=== PATIENT | male | born 1955 | race Caucasian/White ===

== ENCOUNTER → 2019-12-11 | Outpatient (CLI) | payer BC ==
--- NOTE | 2019-12-11 16:06 | KCIC ---
EXAM: MRI RIGHT KNEE DATE: 12/11/2019 1:15 PM CLINICAL INDICATION: Right knee pain-laterally, locking sensation. COMPARISON: None. TECHNIQUE: Multiplanar, multisequence MRI of the right knee was performed without contrast. FINDINGS: Small right knee joint effusion. Small Fan's cyst. The ACL and PCL are grossly intact. The MCL, fibular collateral ligament, biceps femoris and IT band are intact. Popliteus is intact, normal in signal and morphology. Neutral patellar tracking. Extensor mechanism is intact. Medial meniscus: Mild inferior articular surface irregularity suggests fraying at the posterior horn without discrete tear. Lateral meniscus: Intact Chondral fissuring medial femoral condyle without subchondral edema or cystic change. Mild chondral fraying and irregularity at the trochlear apex without discrete full-thickness defect. IMPRESSION: 1. Mild inferior articular surface irregularity of the medial meniscus posterior horn suggests fraying without discrete tear. 2. Chondral fissuring/fraying medial femoral condyle and trochlear apex without subchondral edema or cystic change. 3. Small knee joint effusion. Small Fan's cyst. Electronically signed by: Elver Martines MD (12/11/2019 4:03 PM) [facility]
== END | disposition home or self-care (01) ==
LOC: KCIC MRI 12:49
PROVIDERS: ATTEND Physician Assistant
DX: S83.261A Peripheral tear of lateral meniscus, current injury, right knee, initial encounter (principal); M25.461 Effusion, right knee; M71.21 Synovial cyst of popliteal space [Baker], right knee; X58.XXXA Exposure to other specified factors, initial encounter; Y93.89 Activity, other specified; Y92.89 Other specified places as the place of occurrence of the external cause; Y99.8 Other external cause status
CPT/HCPCS: 73721